=== PATIENT | male | born 1965 | race Caucasian/White ===

== ENCOUNTER 2017-01-13 07:50 | Emergency (ER) | payer BC ==
[~2017-01-13] VITALS: Ht 193 cm; Wt 164.5 kg
[2017-01-13 07:55] VITALS: TEMP 36.8; Ht 193 cm; Wt 164.5 kg
[2017-01-13 08:00] VITALS: O2SAT 94
[2017-01-13] MEDS ORDERED: SODIUM CHLORIDE 0.9% 250ML 250 ML IV STA (08:11)
[2017-01-13] MEDS ORDERED: DILTIAZEM HCL 5 MG/ML 5 ML VIAL IV STA ×3 (08:11→11:16)
--- NOTE | 2017-01-13 08:24 | EMERGENCY ROOM VISIT NOTE ---
History Report prepared by Ryan: Roxanna Suazo Under the Supervision of: Dr. Melchor Christy M.D. First contact with patient: 07:59 Chief Complaint: IRREGULAR HEARTBEAT Stated Complaint: A-FIB History of Present Illness The patient is a 51 year old male who presents to the Emergency Room with complaints of a persistent irregular heartbeat that began prior to arrival. He currently rates his discomfort as a 4/10 in severity. The patient states that he has a history of atrial fibrillation for the past four years. 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 The patient states that he is originally from [place], but states that recently in [place] and had a bout of atrial fibrillation. The patient states that he was transferred to [place] for his job and states that he had all his medical records transferred to Dr. Rosa. He states that he recently saw Dr. Rosa and states that he changed his medications. The patient states that since then, he has been feeling worse. He states that a few days ago he had a bout of atrial fibrillation and was taken to [place] emergency department. The patient states that he was put on a Diltiazem drip and recommended to have an ablation. He states that he is currently on Eliquis and is unsure of his other medications. The patient states that he has been feeling short of breath and weak. He states that he has been having difficulty walking without becoming short of breath. The patient states that he feels palpitations. He states that he also becomes diaphoretic. Source of History: patient Onset: prior to arrival Position: other (global) Symptom Intensity: 4/10 Quality: other (irregular heartbeat) Timing: other (persistent) Associated Symptoms: + SOB, + weakness Note: Associated Symptoms: palpitations Review of Systems See HPI for pertinent positives and negatives. A total of ten systems were reviewed and were otherwise negative. Past Medical & Surgical Medical Problems: (1) Atrial fibrillation No pertinent family history stated Social History Smoking Status: Current Every Day Smoker Occupation Status: employed Current/Historical Medications Scheduled Allopurinol (Zyloprim), 100 MG PO BID Apixaban (Eliquis), 5 MG PO BID Atorvastatin (Lipitor), 40 MG PO DAILY Diltiazem Hcl Ext Rel (Tiazac), 180 MG PO DAILY Duloxetine Hcl (Cymbalta), 20 MG PO BID Furosemide (Lasix), 20 MG PO DAILY Lisinopril (Zestril), 20 MG PO DAILY Metoprolol Tartrate (Lopressor) (Lopressor), 25 MG PO BID Potassium Ext Rel (Klor-Con), 20 MEQ PO BID Zolpidem Tartrate (Ambien Er), 12.5 MG PO HS Allergies Coded Allergies: No Known Allergies (Unverified , 01/13/17) Physical Exam Vital Signs Date Time Temp Pulse Resp B/P (MAP) Pulse Ox O2 Delivery O2 Flow Rate FiO2 01/13/17 13:21 113 20 132/92 01/13/17 13:03 116 22 156/107 96 01/13/17 12:46 101 01/13/17 11:44 93 141/97 01/13/17 11:34 128 20 154/102 96 01/13/17 10:20 102 20 142/98 97 Room Air 01/13/17 09:16 100 20 156/119 Room Air 01/13/17 09:00 116 24 146/119 98 Room Air 01/13/17 08:36 106 24 163/96 97 Room Air 01/13/17 08:24 136 24 159/103 98 Room Air 01/13/17 08:14 131 01/13/17 08:00 94 Room Air 01/13/17 07:55 36.8 107 18 110/77 96 Room Air Physical Exam GENERAL: Awake, alert, well-appearing, in no distress HENT: Normocephalic, atraumatic. Dry mucous membranes. EYES: Normal conjunctiva. Sclera non-icteric. NECK: Supple. No nuchal rigidity. FROM. No JVD. RESPIRATORY: Diminished breath sounds at the bases, otherwise clear. CARDIAC: IRIR. Extremities warm and well perfused. Pulses equal. ABDOMEN: Soft, non-distended. No tenderness to palpation. No rebound or guarding. No masses. RECTAL: Deferred. MUSCULOSKELETAL: Chest examination reveals no tenderness. The back is symmetrical on inspection without obvious abnormality. There is no CVA tenderness to palpation. No joint edema. LOWER EXTREMITIES: Calves are equal size bilaterally and non-tender. Scant lower extremity edemaNo discoloration. NEURO: Normal sensorium. No sensory or motor deficits noted. SKIN: No rash or jaundice noted. Medical Decision & Procedures ER Provider Diagnostic Interpretation: X-ray: Per my interpretation, radiologist review. CHEST ONE VIEW PORTABLE CLINICAL HISTORY: Atypical chest pain COMPARISON STUDY: No previous studies for comparison. FINDINGS: The heart is mildly enlarged. There is no focal pulmonary consolidation. There is no overt failure. No pleural effusions are visualized. Markings are accentuated due to the patient's large body habitus.[ IMPRESSION: No active disease in the chest. Electronically signed by: Jayjay Nelson M.D. 01/13/2017 8:59 AM Dictated Date/Time: 01/13/2017 8:59 AM Laboratory Results 01/13/17 08:15 Red Blood Count 5.02, Mean Corpuscular Volume 95.2, Mean Corpuscular Hemoglobin 34.1, Mean Corpuscular Hemoglobin Concent 35.8, Mean Platelet Volume 10.3, Neutrophils (%) (Auto) 75.6, Lymphocytes (%) (Auto) 13.9, Monocytes (%) (Auto) 8.9, Eosinophils (%) (Auto) 0.4, Basophils (%) (Auto) 0.4, Neutrophils # (Auto) 6.80, Lymphocytes # (Auto) 1.25, Monocytes # (Auto) 0.80, Eosinophils # (Auto) 0.04, Basophils # (Auto) 0.04 01/13/17 08:15 Test 01/13/17 08:15 White Blood Count 9.00 K/uL (4.8-10.8) Red Blood Count 5.02 M/uL (4.7-6.1) Hemoglobin 17.1 g/dL (14.0-18.0) Hematocrit 47.8 % (42-52) Mean Corpuscular Volume 95.2 fL (80-100) Mean Corpuscular Hemoglobin 34.1 pg (25-34) Mean Corpuscular Hemoglobin Concent 35.8 g/dl (32-36) Platelet Count 186 K/uL (130-400) Mean Platelet Volume 10.3 fL (7.4-10.4) Neutrophils (%) (Auto) 75.6 % Lymphocytes (%) (Auto) 13.9 % Monocytes (%) (Auto) 8.9 % Eosinophils (%) (Auto) 0.4 % Basophils (%) (Auto) 0.4 % Neutrophils # (Auto) 6.80 K/uL (1.4-6.5) Lymphocytes # (Auto) 1.25 K/uL (1.2-3.4) Monocytes # (Auto) 0.80 K/uL (0.11-0.59) Eosinophils # (Auto) 0.04 K/uL (0-0.5) Basophils # (Auto) 0.04 K/uL (0-0.2) RDW Standard Deviation 44.8 fL (36.4-46.3) RDW Coefficient of Variation 13.0 % (11.5-14.5) Immature Granulocyte % (Auto) 0.8 % Immature Granulocyte # (Auto) 0.07 K/uL (0.00-0.02) Anion Gap 8.0 mmol/L (3-11) Est Creatinine Clear Calc Drug Dose 133.9 ml/min Estimated GFR () 90.2 Estimated GFR (Non- 77.9 BUN/Creatinine Ratio 10.4 (10-20) Calcium Level 9.0 mg/dl (8.5-10.1) Magnesium Level 1.6 mg/dl (1.8-2.4) Total Bilirubin 0.8 mg/dl (0.2-1) Direct Bilirubin 0.2 mg/dl (0-0.2) Aspartate Amino Transf (AST/SGOT) 41 U/L (15-37) Alanine Aminotransferase (ALT/SGPT) 50 U/L (12-78) Alkaline Phosphatase 93 U/L (45-117) Troponin I < 0.015 ng/ml (0-0.045) Pro-B-Type Natriuretic Peptide 540 pg/ml (0-900) Total Protein 7.8 gm/dl (6.4-8.2) Albumin 3.7 gm/dl (3.4-5.0) Lipase 184 U/L (73-393) Thyroid Stimulating Hormone (TSH) 1.000 uIu/ml (0.300-4.500) Laboratory results reviewed by me Medications Administered Medications (Trade) Dose Ordered Sig/Yesica Route Start Time Stop Time Status Last Admin Dose Admin Sodium Chloride 250 ml @ 999 mls/hr Q16M STAT IV 01/13/17 08:11 01/13/17 08:26 DC 01/13/17 08:23 999 MLS/HR Diltiazem HCl (Cardizem Inj) 15 mg NOW STAT IV 01/13/17 08:11 01/13/17 08:14 DC 01/13/17 08:23 15 MG Diltiazem HCl (Cardizem Inj) 20 mg NOW STAT IV 01/13/17 08:51 01/13/17 08:52 DC 01/13/17 09:03 20 MG Diltiazem HCl (Cardizem Tab) 30 mg NOW ONCE PO 01/13/17 11:00 01/13/17 11:01 DC 01/13/17 10:58 30 MG Diltiazem HCl (Cardizem Inj) 30 mg NOW STAT IV 01/13/17 11:16 01/13/17 11:19 DC 01/13/17 11:39 30 MG Diltiazem HCl (TIAzac CAP) 180 mg NOW STAT PO 01/13/17 12:30 01/13/17 12:35 DC 01/13/17 13:07 180 MG Furosemide (Lasix Tab) 20 mg NOW ONCE PO 01/13/17 12:30 01/13/17 12:35 DC 01/13/17 13:06 20 MG Lisinopril (Zestril Tab) 20 mg NOW STAT PO 01/13/17 12:30 01/13/17 12:35 DC 01/13/17 13:07 20 MG Magnesium Oxide (Mag-Ox Tab) 800 mg NOW PO 01/13/17 12:30 01/13/17 13:50 DC 01/13/17 13:06 800 MG Apixaban (Eliquis Tab) 5 mg NOW ONCE PO 01/13/17 13:30 01/13/17 13:31 DC 01/13/17 13:21 5 MG ECG Indication: palpitations, SOB/dyspnea, weakness Rate (beats per minute): 130 Rhythm: atrial fibrillation (with RVR) Findings: no acute ischemic change, other (normal axis) ED Course 0800: The patient was evaluated in room A12B. A complete history and physical exam was performed. 0811: Ordered Cardizem Inj 15 mg IV, Sodium Chloride 250 ml @ 999 mls/hr IV. 0851: Ordered Cardizem Inj 20 mg IV. 0856: I reevaluated the patient and he is resting comfortably. 1100: Ordered Cardizem Tab 30 mg PO. 1116: Ordered Cardizem Inj 30 mg IV. 1212: I reevaluated the patient and he is resting comfortably. I discussed all the exam findings with him and I discussed the treatment plan. He verbalized complete understanding and agreement. He is ready to go home. 1230: Ordered Magnesium Oxide 800 mg PO, Eliquis Tab 5 mg PO, Zestril Tab 20 mg PO, Lasix Tab 20 mg PO, Diltiazem HCl 180 mg PO. Medical Decision I reviewed the patient's past medical history, medications, and the nursing notes as described above. The patient's presentation and history were concerning for Dehydration, electrolyte abnormality, medication noncompliance, ACS, CHF, pneumonia, bronchitis. The patient is a 51-year-old gentleman with a past medical history of A. fib on Eloquis who presents to emergency department with generalized fatigue and shortness of breath and his been intermittent but persistent over the past several days per history of present illness. Patient presents in the setting of being seen at [facility] 3 days ago for similar symptoms and reports he was treated with a diltiazem drip and discharged with plan for follow -up with a cyber systems administrator. However the patient reports he has been unable to establish a follow-up appointment since his ED visit with his cyber systems administrator Dr. Raines and so comes to the emergency department this morning. Patient reports not taking his medications this morning because he felt too badly. He arrives with A. fib and RVR to the 130s, otherwise his blood pressure is in the 170 systolic. Uncomfortable but in no acute distress. The patient's EKG showed A. fib with RVR. Labs are unremarkable. Troponin negative. BNP within normal limits. Patient's heart was rate controlled after several doses of IV diltiazem. Repeat doses secondary to patient's large habitus. Subsequently given his home medications. Case management assisting and patient will have follow-up with cardiology on Wednesday. Findings and plan for follow-up reviewed with patient. Patient agreeable and d/c'd per discharge instructions. Medication Reconcilliation Current Medication List: was personally reviewed by me Impression Primary Impression: Atrial fibrillation with RVR Additional Impression: Hypomagnesemia Critical Care I have personally spent greater than 80 minutes of critical care time in the direct management of this patient. This includes bedside care, interpretation of diagnostic studies, and testing, discussion with consultants, patient, and family members, and other required patient management activities. This 80 minutes is in excess of all separately billable procedures. Scribe Attestation The scribe's documentation has been prepared under my direction and personally reviewed by me in its entirety. I confirm that the note above accurately reflects all work, treatment, procedures, and medical decision making performed by me. Departure Information Dispostion Home / Self-Care Referrals No Doctor, Assigned (PCP) Forms HOME CARE DOCUMENTATION FORM, IMPORTANT VISIT INFORMATION Patient Instructions Atrial Fibrillation Jere, My [facility] Additional Instructions Please follow up with your cadiologist in the next 1-3 days for re-evaluation. Your symptoms were likely due to your rapid heart rate, which was controlled with medications. Otherwise, your exam, EKG, chest xray, and lab results did not show signs of an emergent condition at this time. Take your medications as prescribed. Return to the emergency department for worsening symptoms as described in the accompanying instructions. Problem Qualifiers
[2017-01-13 08:31] LABS: BASO % 0.4 %; BASO ABS # 0.04 K/uL (0-0.2); COMPLETE YES; EOS % 0.4 %; HEMATOCRIT 47.8 % (42-52); IG% 0.8 %; LYMPH % 13.9 %; LYMPH ABS # 1.25 K/uL (1.2-3.4); MEAN CELL VOLUME 95.2 fL (80-100); MEAN CORPUSCULAR HEMOGLOBIN 34.1 pg (25-34); MEAN CORPUSCULAR HGB CONC 35.8 g/dl (32-36); MEAN PLATELET VOLUME 10.3 fL (7.4-10.4); MONO % 8.9 %; NEUT % 75.6 %; PLATELET COUNT 186 K/uL (130-400); RED BLOOD COUNT 5.02 M/uL (4.7-6.1)
[2017-01-13 08:54] LABS: ALT/SGPT 50 U/L (12-78); AST/SGOT 41 U/L (15-37); BLOOD UREA NITROGEN 11 mg/dl (7-18); BUN/CREATININE RATIO 10.4 (10-20); CARBON DIOXIDE 25 mmol/L (21-32); CHLORIDE 103 mmol/L (98-107); GLUCOSE 145 mg/dl (70-99); MAGNESIUM 1.6 mg/dl (1.8-2.4); POTASSIUM 4.1 mmol/L (3.5-5.1); SODIUM 137 mmol/L (136-145)
--- NOTE | 2017-01-13 09:00 | DIAGNOSTIC IMAGING REPORT ---
CHEST ONE VIEW PORTABLE CLINICAL HISTORY: Atypical chest pain COMPARISON STUDY: No previous studies for comparison. FINDINGS: The heart is mildly enlarged. There is no focal pulmonary consolidation. There is no overt failure. No pleural effusions are visualized. Markings are accentuated due to the patient's large body habitus.[ IMPRESSION: No active disease in the chest. Electronically signed by: Jayjay Nelson M.D. 01/13/2017 8:59 AM Dictated Date/Time: 01/13/2017 8:59 AM
[2017-01-13 09:05] LABS: ALKALINE PHOSPHATASE 93 U/L (45-117)
[2017-01-13] MEDS ORDERED: DILT-113 PO (09:06)
[2017-01-13] MEDS ORDERED: APIX1TAB3 PO (09:06)
[2017-01-13] MEDS ORDERED: LPT/40 PO (09:06)
[2017-01-13] MEDS ORDERED: ALLO100T PO (09:06)
[2017-01-13] MEDS ORDERED: POTA20TA16 PO (09:06)
[2017-01-13] MEDS ORDERED: ZOLP1TAB PO (09:06)
[2017-01-13] MEDS ORDERED: LISI-725 PO (09:06)
[2017-01-13] MEDS ORDERED: METO25TA56 PO (09:06)
[2017-01-13] MEDS ORDERED: DULO-24 PO (09:06)
[2017-01-13] MEDS ORDERED: FURO-85 PO (09:06)
[2017-01-13] MEDS ORDERED: DILTIAZEM HCL 30 MG TAB PO ONE (11:00)
[2017-01-13] MEDS ORDERED: APIXABAN 2.5 MG TAB PO SCH (12:30)
[2017-01-13] MEDS ORDERED: FUROSEMIDE 40 MG TAB PO ONE (12:30)
[2017-01-13] MEDS ORDERED: DILTIAZEM HCL (TIAzac) 180 MG CAPCR PO STA (12:30)
[2017-01-13] MEDS ORDERED: MAGNESIUM OXIDE 400 MG TAB PO SCH (12:30)
[2017-01-13] MEDS ORDERED: LISINOPRIL 20 MG TAB PO STA (12:30)
[2017-01-13 13:03] VITALS: O2SAT 96
[2017-01-13 13:21] VITALS: BP 132/92; PULSE 113
[2017-01-13] MEDS ORDERED: APIXABAN 2.5 MG TAB PO ONE (13:30)
== END 2017-01-13 13:29 | disposition home or self-care (01) ==
LOC: C.EDB 07:52 → C.EDA 13:29
DX: I48.91 Unspecified atrial fibrillation (principal); E83.42 Hypomagnesemia; Z79.01 Long term (current) use of anticoagulants; F17.210 Nicotine dependence, cigarettes, uncomplicated; Z79.899 Other long term (current) drug therapy